=== PATIENT | female | born 1980 ===

== ENCOUNTER 2023-02-05 12:51 | Day surgery (SDC) | payer OTHER | END 2023-02-05 21:35 | disposition home or self-care (01) | LOC: CIR.AMB 12:51 | PROVIDERS: ATTEND Obstetrics & Gynecology | DX: N85.01 Benign endometrial hyperplasia (principal); N93.8 Other specified abnormal uterine and vaginal bleeding; N72 Inflammatory disease of cervix uteri; Z20.822 Contact with and (suspected) exposure to COVID-19 ==